=== PATIENT | female | born 1985 | race Asian ===

== ENCOUNTER 2017-12-10 09:50 | Inpatient (IN) | payer SELFPAY ==
[~2017-12-10] VITALS: Ht 167.6 cm; Wt 78.0 kg
[2017-12-10 10:01] VITALS: BP 115/74
[2017-12-10] MEDS ORDERED: OXYTOCIN 20 UNITS in LACTATED RINGERS 1,000 ML IV SCH (10:12)
[2017-12-10] MEDS ORDERED: PROMETHAZINE 25 MG/ML VIAL IVP PRN (10:15)
[2017-12-10] MEDS ORDERED: NALBUPHINE HYDROCHLORIDE 10 MG/ML VIAL IVP PRN (10:15)
[2017-12-10] MEDS ORDERED: OXYTOCIN 10 UNITS/ML VIAL IM SCH (10:15)
[2017-12-10] MEDS ORDERED: AMPICILLIN 2,000 MG in NACL 0.9% MINI-BAG PLUS 100 ML IV SCH (10:15)
[2017-12-10 11:52] LABS: BASOPHILS % (AUTO) 0.2 % (0.0-2.0); EOSINOPHILS % (AUTO) 0.2 % (0.0-4.0); HEMATOCRIT 40.3 % (36-48); HEMOGLOBIN 13.3 g/dL (12.0-16.0); LYMPHOCYTES # (AUTO) 1.6 K/uL (2.5-16.5); MEAN CORPUSCULAR HEMOGLOBIN 29 pg (27-31); MEAN CORPUSCULAR HGB CONC 33 g/dL (33-37); MEAN CORPUSCULAR VOLUME 88.7 fL (80-94); MONOCYTES # (AUTO) 0.7 K/uL (0.8-1.0); MONOCYTES % (AUTO) 5.6 % (1.7-9.3); NEUTROPHILS # (AUTO) 10.2 K/uL (1.8-7.7); PLATELET COUNT (AUTO) 228 K/uL (140-450); RED BLOOD CELL COUNT(AUTO) 4.54 MIL/uL (4.20-5.40); RED CELL DISTRIBUTION WIDTH 14.4 % (11.6-13.7); WHITE BLOOD COUNT (AUTO) 12.6 K/uL (4.8-10.8)
[2017-12-10] MEDS: LACTATED RINGERS 1,000 ML IV SCH ×2 (11:53→15:35)
[2017-12-10 11:59] LABS: APPEARANCE,URINE CLEAR (CLEAR); BILIRUBIN,URINE NEGATIVE (NEGATIVE); BLOOD, URINE 1+ (NEGATIVE); COLOR,URINE YELLOW (YELLOW); LEUKOCYTE ESTERASE ,URINE 1+ (NEGATIVE); NITRITE, URINE NEGATIVE (NEGATIVE); PH,URINE 6.5 (5.0-9.0); UGLUCOSE NEGATIVE (NEGATIVE)
[2017-12-10] MEDS ORDERED: BUPIVACAINE 0.125%/NS PREMIX 250 ML EPI SCH (12:00)
[2017-12-10] MEDS ORDERED: AMPICILLIN 1,000 MG in NACL 0.9% MINI-BAG PLUS 50 ML IV SCH (12:00)
[2017-12-10] MEDS ORDERED: BUPIVACAINE 0.125%/NS PREMIX 250 ML ONE (12:05)
[2017-12-10 12:29] LABS: RBC,URINE 3-10 (FEW) /HPF (0-5)
[2017-12-10 15:05] LABS: ALBUMIN 2.6 g/dL (3.4-5.0); ANION GAP 17.7 (8-16); CARBON DIOXIDE 20.1 mmol/L (21-32); CREATININE 0.5 mg/dL (0.6-1.3); POTASSIUM 3.8 mmol/L (3.5-5.1); TOTAL BILIRUBIN 0.2 mg/dL (0.0-1.0)
[2017-12-10] MEDS ORDERED: AMPICILLIN 2,000 MG VIAL ONE (22:38)
[2017-12-10] MEDS ORDERED: AMPICILLIN 2,000 MG in NACL 0.9% 100 ML IV SCH ×2 (23:00→23:27)
[2017-12-10] MEDS ORDERED: OXYTOCIN 10 UNITS/ML VIAL ONE (23:47)
[2017-12-11] MEDS: LACTATED RINGERS 1,000 ML IV SCH (00:13)
[2017-12-11] MEDS ORDERED: AMPICILLIN 1,000 MG VIAL ONE (02:40)
[2017-12-11] MEDS ORDERED: AMPICILLIN 1,000 MG in NACL 0.9% 50 ML IV SCH (04:00)
[2017-12-11] MEDS ORDERED: METHYLERGONOVINE 0.2 MG/ML AMP IM PRN (04:25)
[2017-12-11] MEDS ORDERED: MEASLES, MUMPS, AND RUBELLA 1 VIAL SQVAC PRN (04:25)
[2017-12-11] MEDS ORDERED: TEMAZEPAM 15 MG CAP PO PRN (04:25)
[2017-12-11] MEDS ORDERED: BENZOCAINE/MENTHOL 20%-0.5% 60 GM CAN TP PRN (04:25)
[2017-12-11] MEDS ORDERED: IBUPROFEN 800 MG TAB PO PRN (04:25)
[2017-12-11] MEDS ORDERED: oxyCODONE/APAP 5/325 MG 1 TAB TAB PO PRN (04:25)
[2017-12-11] MEDS ORDERED: OXYTOCIN 10 UNITS/ML VIAL IM PRN (04:25)
[2017-12-11] MEDS: HYDROcodone/APAP 5/325 MG 1 TAB TAB PO PRN ×3 (09:06→21:18)
--- NOTE | 2017-12-11 10:36 | NUR ---
PATIENT HAS BEEN SCREENED AND CATEGORIZED LOW NUTRITION RISK. PATIENT WILL BE SEEN WITHIN 7 DAYS OF ADMISSION. 12/16/[address]
[2017-12-11] MEDS ORDERED: DOCUSATE SOD/SENNA 50/8.6 MG 1 TAB PO SCH (21:00)
[2017-12-12] MEDS: HYDROcodone/APAP 5/325 MG 1 TAB TAB PO PRN ×3 (05:33→20:34)
[2017-12-12 06:38] LABS: RAPID PLASMA REAGIN NON-REACTIVE (Non Reactiv)
[2017-12-12 06:58] LABS: HEMOGLOBIN 9.2 g/dL (12.0-16.0)
[2017-12-12] MEDS ORDERED: IBUP-1842 PO (10:29)
== END 2017-12-12 23:27 | disposition home or self-care (01) | DRG 775 ==
LOC: MFCC 09:50 → OBSVTOIN 10:17 → MFCC 12-11 08:00
PROVIDERS: ADMIT Obstetrics & Gynecology; ATTEND Obstetrics & Gynecology
PROC: 10D07Z6 Extraction of Products of Conception, Vacuum, Via Natural or Artificial Opening (ICD-10-PCS; principal; 2017-12-11)
PROC: 10907ZC Drainage of Amniotic Fluid, Therapeutic from Products of Conception, Via Natural or Artificial Opening (ICD-10-PCS; 2017-12-11)
PROC: 3E033VJ Introduction of Other Hormone into Peripheral Vein, Percutaneous Approach (ICD-10-PCS; 2017-12-11)
PROC: 0W8NXZZ Division of Female Perineum, External Approach (ICD-10-PCS; 2017-12-11)
PROC: 00HU33Z Insertion of Infusion Device into Spinal Canal, Percutaneous Approach (ICD-10-PCS; 2017-12-11)
PROC: 3E0R3BZ Introduction of Anesthetic Agent into Spinal Canal, Percutaneous Approach (ICD-10-PCS; 2017-12-11)
PROC: 3E0234Z Introduction of Serum, Toxoid and Vaccine into Muscle, Percutaneous Approach (ICD-10-PCS; 2017-12-12)
DX: O77.0 Labor and delivery complicated by meconium in amniotic fluid (principal); O75.81 Maternal exhaustion complicating labor and delivery; Z37.0 Single live birth; Z3A.39 39 weeks gestation of pregnancy; Z23 Encounter for immunization
CPT/HCPCS: 36415; 51702; 80053; 81001; 85018; 85025; 86592; 86886; 86900; 86901; 87086; 90715; G0378; J0290; J2590; J3490; J7120